=== PATIENT | male | born 1980 | race Caucasian/White ===

== ENCOUNTER 2022-02-02 19:13 | Emergency (ER) | payer OTHER, SELFPAY ==
[~2022-02-02 19:13] MED LIST: Iopamidol-370 76% 500 ML 1 ML ONE
[2022-02-02 19:43] LABS: #Eosinphils 0.3 thou/uL (0.0-0.7); #Lymphocytes 3.7 thou/uL (1.20-3.40); #Monocytes 0.7 thou/uL (0.11-0.59); %Basophils 0.3 % (0.0-1.0); %Lymphocytes 26.9 % (21.0-51.0); %Neutrophils 65.7 % (42.0-75.0); Hemoglobin 17.2 g/dL (14.0-18.0); Mean Corpuscular HGB CONC 34.9 g/dL (32.0-36.0); Mean Corpuscular Hemoglobin 34.3 pg (27.0-31.0); Mean Corpuscular Volume 98.1 fL (78.0-98.0); Mean Platelet Volume 6.1 fL (7.4-10.4); Platelet Count 336 thou/uL (130-400); RBC Distribution Width 11.6 % (11.5-14.5); Red Blood Cell (RBC) Count 5.02 mill/uL (4.70-6.10); White Blood Cell (WBC) Count 13.7 thou/uL (4.8-10.8)
[2022-02-02] MEDS ORDERED: Boostrix 0.5 ML (Tdap) VIAL ONE (19:59)
[2022-02-02 20:04] LABS: ALT (SGPT) 24 U/L (8-55); AST (SGOT) 24 U/L (5-34); Albumin 4.8 g/dL (3.5-5.0); Alcohol 122 mg/dL (Less than 10); Alkaline Phosphatase 62 U/L (40-110); Anion Gap 18 mmol/L (10-20); BUN (Urea Nitrogen) 9 mg/dL (8.9-20.6); Bilirubin, Total 0.6 mg/dL (0.2-1.2); Calc. Creatinine Clearance 0 mL/min (70-130); Carbon Dioxide 21 mmol/L (22-29); Chloride 105 mmol/L (98-107); Globulin 2.9 g/dL (2.4-3.5); Glucose 97 mg/dL (70-105); Potassium 3.7 mmol/L (3.5-5.1); Protein, Total 7.7 g/dL (6.0-8.3); Sodium 140 mmol/L (136-145)
[2022-02-02] MEDS ORDERED: ceFAZolin (BATCH) 2 GM/100 ML BAG ONE (20:05)
[2022-02-02] MEDS ORDERED: Xylocaine 1% w/ Epi 1:100K 10 ML VIAL ONE (20:27)
[2022-02-02] MEDS ORDERED: Triple Antibiotic Oint 1 GM Packet ONE ×2 (20:29)
[2022-02-02] MEDS ORDERED: Fentanyl 100 MCG/2 ML VIAL ONE (20:41)
[2022-02-02] MEDS ORDERED: Ketorolac Tromethamine 30 MG/ML VIAL ONE (20:48)
== END 2022-02-02 21:55 | disposition home or self-care (01) ==
LOC: ERS 19:13
DX: S83.92XA Sprain of unspecified site of left knee, initial encounter (principal); S61.411A Laceration without foreign body of right hand, initial encounter; S01.511A Laceration without foreign body of lip, initial encounter; V86.59XA Driver of other special all-terrain or other off-road motor vehicle injured in nontraffic accident, initial encounter; Z23 Encounter for immunization; F17.210 Nicotine dependence, cigarettes, uncomplicated
CPT/HCPCS: 12002; 12013; 70450; 71045; 71260; 72125; 74177; 80053; 80307; 85025; 90471; 90715; 93005; 96365; 96375; J0690; J1885; J3010; Q9967